=== PATIENT | male | born 1990 | race American Indian/Alaskan Native ===

== ENCOUNTER 2017-07-02 19:12 | Emergency (ER) | payer MEDICAID ==
[2017-07-02 20:10] VITALS: BP 122/79
[2017-07-02] MEDS ORDERED: ZOFRAN ODT PO ONE (20:11)
[2017-07-02] MEDS ORDERED: DILAUDID IM ONE (20:15)
[2017-07-02] MEDS ORDERED: DILAUDID ONE (20:19)
[2017-07-02 20:53] LABS: Basophils % (Auto) 0.3 % (0.0-1.8); Eosinophils % (Auto) 0.2 % (0.0-4.3); Hematocrit 43.2 % (35.5-45.6); Hemoglobin 14.8 gm/dl (11.8-15.2); Mean Corpuscular HGB Conc 34 % (32-34); Mean Corpuscular Hemoglobin 32 pg (28-32); Mean Corpuscular Volume 94 fl (84-94); Platelet Count 179 K/mm3 (140-440); Red Cell Distribution Width 13.4 % (13.2-15.2); White Blood Count 7.6 K/mm3 (4.5-11.0)
[2017-07-02 21:11] LABS: Albumin 4.5 g/dL (3.9-5); Albumin/Globulin Ratio 1.4 %; Alkaline Phosphatase 48 units/L (35-129); Anion Gap 19 mmol/L; BUN/Creatinine Ratio 15; Blood Urea Nitrogen 12 mg/dL (9-20); Calcium 9.4 mg/dL (8.4-10.2); Carbon Dioxide 26 mmol/L (22-30); Glucose 92 mg/dL (75-100); Sodium 137 mmol/L (137-145); Total Protein 7.7 g/dL (6.3-8.2)
[2017-07-02 21:16] LABS: Alanine Aminotransferase < 5 units/L (7-56)
== END 2017-07-02 23:15 | disposition left against medical advice (07) ==
LOC: ED 19:12
DX: R10.9 Unspecified abdominal pain (principal); M54.9 Dorsalgia, unspecified; Z53.21 Procedure and treatment not carried out due to patient leaving prior to being seen by health care provider
CPT/HCPCS: 36415; 80053; 85025; 96372; J1170; Q0162

== ENCOUNTER 2021-01-01 13:23 | Emergency (ER) | payer MEDICAID ==
[2021-01-01 13:44] VITALS: BP 122/84
--- NOTE | 2021-01-01 16:17 | Emergency Department Report ---
ED General Adult HPI - General Chief complaint: Burn/Smoke Inhalation Stated complaint: CHEM BURN ON HEAD Time Seen by Provider: 01/01/21 16:02 Source: patient Mode of arrival: Ambulatory Limitations: No Limitations - History of Present Illness Initial comments: Patient is a 30-year-old male who presents emergency room with complaints of a chemical burn that occurred 4 days ago. He states that floor stripping fell onto his head at work. He states his scalp was been irritated and itching. He states that he had some hair loss. He denies any blistering, drainage, fever or contact anywhere else. He states that he immediately rinsed his scalp with water for approximately 30 minutes. He states that his work gave him a printout of the material that was in the floor stripper and adjust advised to rinse with water. No past medical history. No allergies to medications. - Related Data Previous Rx's Medication Instructions Recorded Last Taken Type Cyclobenzaprine [Flexeril] 10 mg PO TID PRN #30 tablet 07/02/16 Unknown Rx Ibuprofen [Motrin] 800 mg PO Q8HR PRN #30 tablet 07/02/16 Unknown Rx Cyclobenzaprine [Flexeril] 10 mg PO TID PRN #12 tablet 07/31/19 Unknown Rx Allergies Allergy/AdvReac Type Severity Reaction Status Date / Time Iodine and Iodide Containing AdvReac Anaphylaxis Verified 01/01/21 13:44 Produc shellfish derived AdvReac Anaphylaxis Verified 01/01/21 13:44 ED Review of Systems ROS: Stated complaint: CHEM BURN ON HEAD Other details as noted in HPI Comment: All other systems reviewed and negative ED Past Medical Hx - Past Medical History Hx CVA: Yes Hx Seizures: Yes (Jone's paresis) Additional medical history: bronchitis, heart murmur, Crohn's, Freddy mass - Social History Smoking Status: Current Every Day Smoker Substance Use Type: None - Medications Home Medications: Home Medications Medication Instructions Recorded Confirmed Last Taken Type Cyclobenzaprine [Flexeril] 10 mg PO TID PRN #30 tablet 07/02/16 Unknown Rx Ibuprofen [Motrin] 800 mg PO Q8HR PRN #30 tablet 07/02/16 Unknown Rx Cyclobenzaprine [Flexeril] 10 mg PO TID PRN #12 tablet 07/31/19 Unknown Rx ED Physical Exam - General Limitations: No Limitations General appearance: alert, in no apparent distress - Head Head exam: Present: atraumatic, normocephalic - Eye Eye exam: Present: normal appearance - Respiratory Respiratory exam: Absent: respiratory distress, accessory muscle use - Neurological Exam Neurological exam: Present: alert, oriented X3 - Psychiatric Psychiatric exam: Present: normal affect, normal mood - Skin Skin exam: Present: warm, dry, other (no blistering, no signs of burn, no erythema, no crusting) ED Course Vital Signs 01/01/21 13:43 Temperature 98.6 F Pulse Rate 57 L Respiratory 12 Rate Blood Pressure 122/84 [Left] O2 Sat by Pulse 100 Oximetry ED Medical Decision Making - Medical Decision Making Patient is a 30-year-old male who presents emergency room with complaints of a chemical burn that occurred 4 days ago. He states that floor stripping fell onto his head at work. He states his scalp was been irritated and itching. He states that he had some hair loss. He denies any blistering, drainage, fever or contact anywhere else. He states that he immediately rinsed his scalp with water for approximately 30 minutes. He states that his work gave him a printout of the material that was in the floor stripper and adjust advised to rinse with water. No past medical history. No allergies to medications. Vitals are stable. On exam:no blistering, no signs of burn, no erythema, no crusting. No obvious signs of burn or infection on exam. Advised patient Please use selenium sulfide shampoo. Follow-up with your primary care doctor. Return to emergency room for new or worse symptoms. Critical care attestation.: If time is entered above; I have spent that time in minutes in the direct care of this critically ill patient, excluding procedure time. ED Disposition Clinical Impression: Scalp irritation, History of chemical contact dermatitis Disposition: DC-01 TO HOME OR SELFCARE Is pt being admited?: No Does the pt Need Aspirin: No Condition: Stable Additional Instructions: Please use selenium sulfide shampoo. Follow-up with your primary care doctor. Return to emergency room for new or worse symptoms. Referrals: TRICIA NAILS MD [Staff Physician] - 3-5 Days [facility] [Provider Group] - 3-5 Days Forms: Work/School Release Form(ED) Time of Disposition: 16:16 Print Language: GUATEMALAN
== END 2021-01-01 16:39 | disposition home or self-care (01) ==
LOC: ED 13:23
DX: R23.8 Other skin changes (principal); F17.200 Nicotine dependence, unspecified, uncomplicated; Z87.2 Personal history of diseases of the skin and subcutaneous tissue; Z91.041 Radiographic dye allergy status; Z91.013 Allergy to seafood; Z79.899 Other long term (current) drug therapy; Z86.73 Personal history of transient ischemic attack (TIA), and cerebral infarction without residual deficits; Z86.69 Personal history of other diseases of the nervous system and sense organs
CPT/HCPCS: 99281

== ENCOUNTER 2021-09-12 07:33 | Emergency (ER) | payer MEDICAID ==
[2021-09-12] MEDS ORDERED: levETIRAcetam 1000 MG/NS 0.75% 1,000 MG/100 ML BAG IV ONE (07:47)
[2021-09-12] MEDS ORDERED: KETOROLAC 30 MG/1 ML INJ IV ONE (07:53)
--- NOTE | 2021-09-12 07:55 | Emergency Department Report ---
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 Family witnessed 2 seizures. Patient alert and oriented x2 upon ED arrival with slow response to questions. He complains of a 4/10 pulsating headache typical of post seizure headache. Did not bite his tongue. He has been compliant with his seizure medication which he thinks might be Keppra. 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 He taken oxcarbazepine at that time. Patient states that no intervention was recommended at that time for his brain mass and it was thought that it might "dissolve". Instead mass has increased in size and patient is having recurrent headaches. He is scheduled for a repeat MRI in 2 days on September 14. No focal weakness reported - Related Data Home Medications Medication Instructions Recorded Confirmed Last Taken Divalproex Dr [DepAmericaTE DR] 500 mg PO BID 09/12/21 09/12/21 Unknown Previous Rx's Medication Instructions Recorded Last Taken Type Cyclobenzaprine [Flexeril] 10 mg PO TID PRN #30 tablet 07/02/16 Unknown Rx Ibuprofen [Motrin] 800 mg PO Q8HR PRN #30 tablet 07/02/16 Unknown Rx Cyclobenzaprine [Flexeril] 10 mg PO TID PRN #12 tablet 07/31/19 Unknown Rx Allergies Allergy/AdvReac Type Severity Reaction Status Date / Time Iodine and Iodide Containing AdvReac Anaphylaxis Verified 09/12/21 07:37 Produc shellfish derived AdvReac Anaphylaxis Verified 09/12/21 07:37 ED Review of Systems ROS: Stated complaint: SEIZURE Other details as noted in HPI Comment: All other systems reviewed and negative ED Past Medical Hx - Past Medical History Hx CVA: Yes Hx Seizures: Yes (Jone's paresis) Additional medical history: bronchitis, heart murmur, Crohn's, Freddy mass - Social History Smoking Status: Never Smoker - Medications Home Medications: Home Medications Medication Instructions Recorded Confirmed Last Taken Type Cyclobenzaprine [Flexeril] 10 mg PO TID PRN #30 tablet 07/02/16 Unknown Rx Ibuprofen [Motrin] 800 mg PO Q8HR PRN #30 tablet 07/02/16 Unknown Rx Cyclobenzaprine [Flexeril] 10 mg PO TID PRN #12 tablet 07/31/[address] [DepaKOTE DR] 500 mg PO BID 09/12/21 09/12/21 Unknown History ED Physical Exam - General Limitations: No Limitations - Other Other exam information: General: No acute distress Head: Atraumatic Eyes: normal appearance ENT: Moist mucous membranes Neck: Normal appearance, no midline tenderness Chest: Clear to auscultation bilaterally CV: Regular rate and rhythm Abdomen: Soft, normal bowel sounds, nontender, nondistended, no rebound or guarding Back: Normal inspection Extremity: Normal inspection, full range of motion Neuro: Alert O x 2, slow response to questions, no facial asymmetry, speech clear, no gross motor sensory deficit Psych: Appropriate behavior Skin: No rash ED Course Vital Signs 09/12/21 09/12/21 09/12/21 07:34 07:46 08:00 Temperature 98.2 F Pulse Rate 62 65 55 L Respiratory 20 10 L Rate Blood Pressure 128/80 Blood Pressure 136/78 [Right] O2 Sat by Pulse 100 100 Oximetry 09/12/21 09/12/21 09/12/21 08:30 09:00 09:30 Temperature Pulse Rate 57 L 71 57 L Respiratory 12 13 15 Rate Blood Pressure 133/82 120/82 107/62 Blood Pressure [Right] O2 Sat by Pulse 97 100 99 Oximetry 09/12/21 09/12/21 09/12/21 10:00 10:30 11:00 Temperature Pulse Rate 55 L 52 L 51 L Respiratory 14 10 L 13 Rate Blood Pressure 109/57 100/61 96/59 Blood Pressure [Right] O2 Sat by Pulse 98 100 100 Oximetry 09/12/21 11:02 Temperature 98.0 F Pulse Rate Respiratory Rate Blood Pressure Blood Pressure [Right] O2 Sat by Pulse Oximetry - Reevaluation(s) Reevaluation #1: 09/12/21 12:43 a0x 3 ED Medical Decision Making - Lab Data Result diagrams: 09/12/21 08:09 09/12/21 08:09 Lab Results 09/12/21 09/12/21 09/12/21 Range/Units 08:09 08:09 11:00 WBC 4.1 L (4.5-11.0) K/mm3 RBC 4.17 (3.65-5.03) M/mm3 Hgb 13.0 (11.8-15.2) gm/dl Hct 39.6 (35.5-45.6) % MCV 95 H (84-94) fl MCH 31 (28-32) pg MCHC 33 (32-34) % RDW 14.4 (13.2-15.2) % Plt Count 190 (140-440) K/mm3 Lymph % (Auto) 30.1 (13.4-35.0) % Simpson % (Auto) 10.1 H (0.0-7.3) % Eos % (Auto) 8.5 H (0.0-4.3) % Baso % (Auto) 1.1 (0.0-1.8) % Lymph # (Auto) 1.2 (1.2-5.4) K/mm3 Simpson # (Auto) 0.4 (0.0-0.8) K/mm3 Eos # (Auto) 0.3 (0.0-0.4) K/mm3 Baso # (Auto) 0.0 (0.0-0.1) K/mm3 Seg Neutrophils % 50.2 (40.0-70.0) % Seg Neutrophils # 2.1 (1.8-7.7) K/mm3 Sodium 142 (137-145) mmol/L Potassium 3.9 (3.6-5.0) mmol/L Chloride 105.9 (98-107) mmol/L Carbon Dioxide 25 (22-30) mmol/L Anion Gap 15 mmol/L BUN 11 (9-20) mg/dL Creatinine 0.8 (0.8-1.3) mg/dL Estimated GFR > 60 ml/min BUN/Creatinine Ratio 14 % Glucose 87 (75-100) mg/dL POC Glucose (70-105) mg/dL Calcium 8.7 (8.4-10.2) mg/dL Magnesium 1.90 (1.7-2.3) mg/dL Urine Opiates Screen Negative Urine Methadone Screen Negative Ur Barbiturates Screen Negative Valproic Acid (50-100) ug/mL Ur Phencyclidine Scrn Negative Ur Amphetamines Screen Negative U Benzodiazepines Scrn Negative Urine Cocaine Screen Negative U Marijuana (THC) Screen Positive 09/12/21 09/12/21 Range/Units 11:04 11:35 WBC (4.5-11.0) K/mm3 RBC (3.65-5.03) M/mm3 Hgb (11.8-15.2) gm/dl Hct (35.5-45.6) % MCV (84-94) fl MCH (28-32) pg MCHC (32-34) % RDW (13.2-15.2) % Plt Count (140-440) K/mm3 Lymph % (Auto) (13.4-35.0) % Simpson % (Auto) (0.0-7.3) % Eos % (Auto) (0.0-4.3) % Baso % (Auto) (0.0-1.8) % Lymph # (Auto) (1.2-5.4) K/mm3 Simpson # (Auto) (0.0-0.8) K/mm3 Eos # (Auto) (0.0-0.4) K/mm3 Baso # (Auto) (0.0-0.1) K/mm3 Seg Neutrophils % (40.0-70.0) % Seg Neutrophils # (1.8-7.7) K/mm3 Sodium (137-145) mmol/L Potassium (3.6-5.0) mmol/L Chloride (98-107) mmol/L Carbon Dioxide (22-30) mmol/L Anion Gap mmol/L BUN (9-20) mg/dL Creatinine (0.8-1.3) mg/dL Estimated GFR ml/min BUN/Creatinine Ratio % Glucose (75-100) mg/dL POC Glucose 77 (70-105) mg/dL Calcium (8.4-10.2) mg/dL Magnesium (1.7-2.3) mg/dL Urine Opiates Screen Urine Methadone Screen Ur Barbiturates Screen Valproic Acid < 2.8 L (50-100) ug/mL Ur Phencyclidine Scrn Ur Amphetamines Screen U Benzodiazepines Scrn Urine Cocaine Screen U Marijuana (THC) Screen - Medical Decision Making 31-year-old male presents to the hospital planing of seizures despite medication noncompliance. Initially states he was on Keppra therefore loaded with 1 g of Keppra. Then prior to discharge he states he is on Depakote therefore Depakote level added and he states he needs a refill. Family member presented a almost full bottle of Depakote DR 500 mg confirming that patient is indeed noncompliant with his medications. Depakote level 0 on blood work. Patient encouraged to be compliant with medication and will be discharged to follow-up with his neurologist and continue his outpatient work-up - Differential Diagnosis Noncompliance, breakthrough seizures, brain mass, electrolyte abnormalities Critical Care Time: No Critical care attestation.: If time is entered above; I have spent that time in minutes in the direct care of this critically ill patient, excluding procedure time. ED Disposition Clinical Impression: Seizure, Noncompliance with medication regimen Disposition: 01 HOME / SELF CARE / HOMELESS Is pt being admited?: No Does the pt Need Aspirin: No Condition: Stable Instructions: Epilepsy, [id number] Additional Instructions: Take the medication as prescribed. Follow-up with your doctor or doctor/clinic provided. Return if symptoms worsen as indicated by your discharge instructions. Referrals: PRIMARY CARE, [Primary Care Provider] - 3-5 Days Your, neurologist [Other] - 3-5 Days Time of Disposition: 12:43
[2021-09-12 08:26] LABS: Basophils % (Auto) 1.1 % (0.0-1.8); Eosinophils # (Auto) 0.3 K/mm3 (0.0-0.4); Eosinophils % (Auto) 8.5 % (0.0-4.3); Hematocrit 39.6 % (35.5-45.6); Lymphocytes # (Auto) 1.2 K/mm3 (1.2-5.4); Lymphocytes % (Auto) 30.1 % (13.4-35.0); Mean Corpuscular HGB Conc 33 % (32-34); Mean Corpuscular Volume 95 fl (84-94); Monocytes # (Auto) 0.4 K/mm3 (0.0-0.8); Monocytes % (Auto) 10.1 % (0.0-7.3); Platelet Count 190 K/mm3 (140-440); Red Blood Count 4.17 M/mm3 (3.65-5.03); Red Cell Distribution Width 14.4 % (13.2-15.2)
[2021-09-12 08:48] LABS: BUN/Creatinine Ratio 14; Blood Urea Nitrogen 11 mg/dL (9-20); Calcium 8.7 mg/dL (8.4-10.2); Hemolysis Index 8
[2021-09-12 11:03] VITALS: BP 96/59
[2021-09-12 11:19] LABS: Amphetamine Screen,Urine Negative; Benzodiazepines Screen,Urine Negative; Cocaine Screen,Urine Negative; Methadone Screen,Urine Negative; Opiate Screen,Urine Negative
[2021-09-12 11:57] LABS: Cannabinoid Screen,Urine Positive
== END 2021-09-12 12:54 | disposition home or self-care (01) ==
LOC: ED 07:33
DX: R56.9 Unspecified convulsions (principal); Z86.73 Personal history of transient ischemic attack (TIA), and cerebral infarction without residual deficits; Z88.8 Allergy status to other drugs, medicaments and biological substances; Z91.013 Allergy to seafood; Z79.899 Other long term (current) drug therapy
CPT/HCPCS: 36415; 80048; 80164; 80307; 82962; 83735; 85025; 96365; 96375; 99284; J1885; J1953